=== PATIENT | female | born 1995 | race African-American/Black ===

== ENCOUNTER 2023-03-03 07:06 | Inpatient (IN) | payer SELFPAY ==
[~2023-03-03] VITALS: Ht 167.6 cm; Wt 77.1 kg
[2023-03-03 08:10] LABS: CLARITY URINE CLEAR (CLEAR); COLOR URINE YELLOW (YELLOW); GLUCOSE URINE NEGATIVE (NEGATIVE); KETONES URINE TRACE (NEGATIVE); LEUKOCYTE ESTERASE URINE NEGATIVE (NEGATIVE); NITRITE URINE NEGATIVE (NEGATIVE); OCCULT BLOOD URINE 3+ (NEGATIVE); PH URINE 5.5 (4.5-8.0); PROTEIN URINE 1+ (NEGATIVE); SPECIFIC GRAVITY URINE 1.032 (1.005-1.030)
[2023-03-03 08:46] LABS: BASOPHILS % 0.3 % (0.0-2.0); DIFFERENTIAL COMMENT 0; EOSINOPHILS % 0.3 % (0.0-5.0); LYMPHOCYTES % 12.6 % (20.0-50.0); MEAN CORPUSCULAR HEMOGLOBIN 28.1 pg (28.0-32.0); MEAN CORPUSCULAR HGB CONC 33.1 g/dL (31.0-37.0); MEAN CORPUSCULAR VOLUME 84.8 fL (81.0-99.0); MEAN PLATELET VOLUME 8.2 fl (7.4-10.4); MONOCYTES % 3.1 % (2.0-8.0); NEUTROPHILS % 83.7 % (40.0-76.0); PLATELET 218 x1000/uL (130-400); RED BLOOD CELL COUNT 2.04 mill/uL (4.2-5.4); RED CELL DISTRIBUTION WIDTH 15.1 % (11.6-14.6); WHITE BLOOD COUNT 7.3 x1000/uL (4.5-11.0)
[2023-03-03 08:48] LABS: CHLORIDE 110 mEq/L (98-107); INDEX HEMOLYSI 1 (1-3); INDEX ICTERIC 1 (1-4); INDEX LIPEMIC 1 (1-3); POTASSIUM 3.9 mEq/L (3.5-5.1); SODIUM 138 mEq/L (136-145)
[2023-03-03 08:49] LABS: HEMATOCRIT. 17.3 % (36.0-48.0); HEMOGLOBIN. 5.7 g/dL (12.0-16.0)
[2023-03-03 08:54] LABS: MUCUS URINE 2+ /lpf (< = 2+)
[2023-03-03 08:55] LABS: BACTERIA URINE TRACE; RBC URINE TNTC /hpf (0-2); SQUAMOUS EPITHELIAL CELL URINE RARE /lpf (RARE/1+)
[2023-03-03 08:56] LABS: WBC URINE 0-2 /hpf (0-2)
[2023-03-03 09:04] LABS: ALANINE AMINOTRANSFERASE 18 IU/L (13-61); ALBUMIN 3.6 g/dL (3.4-5.0); ASPARTATE AMINOTRANSFERASE 9 IU/L (15-37); B-HCG QUANTITATIVE 66 mIU/mL (<3); BILIRUBIN TOTAL 0.2 mg/dL (0.1-1.0); CALCIUM 8.6 mg/dL (8.5-10.1); CARBON DIOXIDE 25 mEq/L (21-32); CREATININE 0.8 mg/dL (0.6-1.3); GLUCOSE 105 mg/dL (70-105); PROTEIN TOTAL 6.8 g/dL (6.0-8.3); UREA NITROGEN BLOOD 13 mg/dL (7-21)
[2023-03-03 09:35] LABS: PARTIAL THROMBOPLASTIN TIME 22.8 sec (23.4-31.0); PROTHROMBIN TIME 10.9 sec (9.6-11.0)
[2023-03-03 16:43] LABS: HEMATOCRIT 22.8 % (36.0-48.0); HEMOGLOBIN 7.4 g/dL (12.0-16.0); MEAN CORPUSCULAR HEMOGLOBIN 27.4 pg (28.0-32.0); MEAN CORPUSCULAR HGB CONC 32.5 g/dL (31.0-37.0); MEAN CORPUSCULAR VOLUME 84.3 fL (81.0-99.0); PLATELET 187 x1000/uL (130-400); RED CELL DISTRIBUTION WIDTH 15.2 % (11.6-14.6); WHITE BLOOD COUNT 8.2 x1000/uL (4.5-11.0)
[2023-03-03] MEDS ORDERED: PROPOFOL 200MG/20ML VIAL IV ONE ×2 (20:12→20:25)
[2023-03-03] MEDS ORDERED: CEFAZOLIN SODIUM 1000MG/VIAL ONE (20:38)
[2023-03-03] MEDS ORDERED: DEXAMETHASONE 4MG/ML 1ML VIAL ONE (20:38)
[2023-03-03] MEDS ORDERED: ONDANSETRON HCL 4MG/2ML INJ ONE (20:38)
[2023-03-03] MEDS ORDERED: SUCCINYLCHOLINE CHLORIDE 200MG/10ML IV ONE (20:38)
[2023-03-03] MEDS ORDERED: LIDOCAINE HCL 1% 20ML VIAL (Pyxis) INJ ONE (20:39)
[2023-03-03] MEDS ORDERED: MIDAZOLAM HCL 2 MG/2 ML VIAL ONE (20:39)
[2023-03-03] MEDS ORDERED: KETOROLAC 30MG/ML VIAL ONE (20:40)
[2023-03-03] MEDS ORDERED: FENTANYL CITRATE/PF 50MCG/ML 2ML VIAL ONE ×3 (20:40→23:43)
[2023-03-03] MEDS ORDERED: FENTANYL CITRATE/PF 50MCG/ML 2ML VIAL IV PRN (21:00)
[2023-03-03] MEDS ORDERED: ONDANSETRON HCL 4MG/2ML INJ IV PRN (21:00)
[2023-03-03] MEDS ORDERED: HYDROMORPHONE HCL/PF 2MG/ML CPJ IV PRN (21:00)
[2023-03-03] MEDS ORDERED: MEPERIDINE HCL/PF 25MG/ML CPJ IV PRN (21:00)
[2023-03-03] MEDS ORDERED: OXYTOCIN 10 UNITS/ML 1ML ONE (21:19)
[2023-03-03] MEDS ORDERED: TRANEXAMIC ACID 1,000 MG/10 ML IV ONE (21:30)
[2023-03-03] MEDS ORDERED: WATER IV NR (22:00)
[2023-03-03] MEDS ORDERED: TRANEXAMIC ACID IV NR (22:00)
[2023-03-03] MEDS ORDERED: DEXT 5% IV NR (22:00)
[2023-03-03] MEDS ORDERED: MISOPROSTOL 200MCG TABLET PO SCH (22:00)
[2023-03-03 22:39] LABS: BASOPHILS % 0.5 % (0.0-2.0); DIFFERENTIAL COMMENT 0; EOSINOPHILS % 0.4 % (0.0-5.0); LYMPHOCYTES % 11.3 % (20.0-50.0); MEAN CORPUSCULAR HEMOGLOBIN 27.4 pg (28.0-32.0); MEAN CORPUSCULAR HGB CONC 32.3 g/dL (31.0-37.0); MEAN CORPUSCULAR VOLUME 84.6 fL (81.0-99.0); MEAN PLATELET VOLUME 8.3 fl (7.4-10.4); MONOCYTES % 4.4 % (2.0-8.0); NEUTROPHILS % 83.4 % (40.0-76.0); PLATELET 136 x1000/uL (130-400); RED BLOOD CELL COUNT 2.15 mill/uL (4.2-5.4); RED CELL DISTRIBUTION WIDTH 14.8 % (11.6-14.6)
[2023-03-03 22:46] LABS: HEMOGLOBIN. 5.9 g/dL (12.0-16.0)
[2023-03-03 22:47] LABS: HEMATOCRIT. 18.2 % (36.0-48.0)
[2023-03-03] MEDS ORDERED: IOHEXOL-300 100 ML BOTTLE ONE (23:17)
[2023-03-03] MEDS ORDERED: LIDOCAINE HCL 1% 10 MG/ML 10ML VIAL ONE (23:17)
[2023-03-03 23:29] LABS: D-DIMER 0.72 mg/L FEU (<0.50); INR 1.1; PROTHROMBIN TIME 11.5 sec (9.6-11.0)
[2023-03-04] VITALS (71 sets, daily range): BP systolic 101–136; BP diastolic 49–94; PULSE 66–130; RESP 12–69; TEMP 98–98.8
[2023-03-04] MEDS ORDERED: IOHEXOL-300 100 ML BOTTLE ONE (00:39)
[2023-03-04] MEDS ORDERED: FENTANYL CITRATE/PF 50MCG/ML 2ML VIAL ONE (01:29)
[2023-03-04] MEDS ORDERED: IOHEXOL-300 50 ML BOTTLE IV ONE (01:35)
[2023-03-04] MEDS ORDERED: TRANEXAMIC ACID 1,000 MG/10 ML IV SCH (02:15)
[2023-03-04] MEDS ORDERED: ONDANSETRON HCL 4MG/2ML INJ IV PRN (02:45)
[2023-03-04] MEDS ORDERED: MEPERIDINE HCL/PF 25MG/ML CPJ IV PRN (02:45)
[2023-03-04] MEDS ORDERED: HYDROMORPHONE HCL/PF 2MG/ML CPJ IV PRN (02:45)
[2023-03-04] MEDS ORDERED: FENTANYL CITRATE/PF 50MCG/ML 2ML VIAL IV PRN (02:45)
[2023-03-04 03:28] LABS: HEMATOCRIT. 28.2 % (36.0-48.0); HEMOGLOBIN. 9.6 g/dL (12.0-16.0); MEAN CORPUSCULAR HGB CONC 33.9 g/dL (31.0-37.0); MEAN CORPUSCULAR VOLUME 85.5 fL (81.0-99.0); MEAN PLATELET VOLUME 8.3 fl (7.4-10.4); PLATELET 162 x1000/uL (130-400); RED BLOOD CELL COUNT 3.29 mill/uL (4.2-5.4); WHITE BLOOD COUNT 11.1 x1000/uL (4.5-11.0)
[2023-03-04 03:30] LABS: D-DIMER 0.51 mg/L FEU (<0.50); INR 1.1; PARTIAL THROMBOPLASTIN TIME 26.2 sec (23.4-31.0); PROTHROMBIN TIME 11.3 sec (9.6-11.0)
[2023-03-04 03:38] LABS: CALCIUM 7.4 mg/dL (8.5-10.1); CHLORIDE 113 mEq/L (98-107); INDEX HEMOLYSI 1 (1-3); INDEX ICTERIC 1 (1-4); INDEX LIPEMIC 1 (1-3); POTASSIUM 4.4 mEq/L (3.5-5.1); SODIUM 138 mEq/L (136-145)
[2023-03-04 03:42] LABS: CARBON DIOXIDE 24 mEq/L (21-32); CREATININE 0.8 mg/dL (0.6-1.3); GLUCOSE 159 mg/dL (70-105); UREA NITROGEN BLOOD 6 mg/dL (7-21)
[2023-03-04 03:47] LABS: DIFFERENTIAL COMMENT 1
[2023-03-04 04:44] LABS: PLATELET ESTIMATE NORMAL
[2023-03-04] MEDS: WATER IV SCH ×3 (07:44→20:47)
[2023-03-04] MEDS: TRANEXAMIC ACID IV SCH ×3 (07:44→20:47)
[2023-03-04] MEDS: DEXT 5% IV SCH ×3 (07:44→20:47)
[2023-03-04 10:34] LABS: HEMATOCRIT 27.2 % (36.0-48.0); HEMOGLOBIN 8.9 g/dL (12.0-16.0)
[2023-03-04] MEDS: FERROUS SULFATE 325MG TABLET PO SCH (18:10)
[2023-03-04 22:18] LABS: BASOPHILS % 0.3 % (0.0-2.0); EOSINOPHILS % 0.2 % (0.0-5.0); HEMATOCRIT. 26.2 % (36.0-48.0); HEMOGLOBIN. 8.5 g/dL (12.0-16.0); MEAN CORPUSCULAR HEMOGLOBIN 28.4 pg (28.0-32.0); MEAN CORPUSCULAR HGB CONC 32.5 g/dL (31.0-37.0); MEAN CORPUSCULAR VOLUME 87.2 fL (81.0-99.0); MEAN PLATELET VOLUME 8.8 fl (7.4-10.4); MONOCYTES % 7.3 % (2.0-8.0); NEUTROPHILS % 70.2 % (40.0-76.0); PLATELET 130 x1000/uL (130-400); RED CELL DISTRIBUTION WIDTH 15.1 % (11.6-14.6)
[2023-03-05] VITALS: BP 106/60; PULSE 81; RESP 16; TEMP 99.5
[2023-03-05] MEDS: WATER IV SCH ×2 (03:18→09:37)
[2023-03-05] MEDS: TRANEXAMIC ACID IV SCH ×2 (03:18→09:37)
[2023-03-05] MEDS: DEXT 5% IV SCH ×2 (03:18→09:37)
[2023-03-05 04:00] VITALS: BP 109/63; PULSE 16; RESP 16; TEMP 99.5
[2023-03-05 08:00] VITALS: BP 115/71; PULSE 87; RESP 18; TEMP 98.9
[2023-03-05] MEDS ORDERED: MULTIVITAMINS,THER W-MINERALS TABLET PO SCH (09:00)
[2023-03-05] MEDS: FERROUS SULFATE 325MG TABLET PO SCH ×3 (09:37→16:48)
[2023-03-05 12:00] VITALS: BP 122/73; PULSE 103; RESP 20; TEMP 97.9
[2023-03-05 16:00] VITALS: BP 132/70; PULSE 109; RESP 20; TEMP 98.6
[2023-03-05 16:07] VITALS: BP 115/71; PULSE 87; TEMP 98.9; O2SAT 99
== END 2023-03-05 17:35 | disposition home or self-care (01) | DRG 543 ==
LOC: ER 08:16 → MICUSO 14:40 → CANBEDREQ 15:34 → MICUSO 03-04 03:50 → 6WST 03-04 19:01
PROVIDERS: ADMIT Obstetrics & Gynecology; ATTEND Obstetrics & Gynecology
PROC: 30233N1 Transfusion of Nonautologous Red Blood Cells into Peripheral Vein, Percutaneous Approach (ICD-10-PCS; principal; 2023-03-03)
PROC: 10D17ZZ Extraction of Products of Conception, Retained, Via Natural or Artificial Opening (ICD-10-PCS; 2023-03-04)
PROC: 30233L1 Transfusion of Nonautologous Fresh Plasma into Peripheral Vein, Percutaneous Approach (ICD-10-PCS; 2023-03-04)
PROC: B41JYZZ Fluoroscopy of Other Lower Arteries using Other Contrast (ICD-10-PCS; 2023-03-05)
DX: O03.4 Incomplete spontaneous abortion without complication (principal); O99.011 Anemia complicating pregnancy, first trimester; Z20.822 Contact with and (suspected) exposure to COVID-19; Z3A.01 Less than 8 weeks gestation of pregnancy
CPT/HCPCS: 36415; 75736; 75774; 76801; 80048; 80053; 81003; 84702; 85014; 85018; 85025; 85027; 85379; 85384; 86850; 86900; 86920; 86927; 87426; 88305; 93005; 93970; 99291; A6261; C1725; C1757; C1760; C1766; C1769; C9803; J0330; J0690; J1100; J1644; J1885; J2250; J2405; J2704; J3010; J3490; J7060; P9016; P9017; Q9967; A4315

== ENCOUNTER 2024-02-11 13:31 | Emergency (ER) | payer MEDICAID, OTHER ==
[~2024-02-11] VITALS: Ht 170.2 cm; Wt 81.0 kg
[2024-02-11 13:37] VITALS: O2SAT 98
[2024-02-11 14:02] LABS: BASOPHILS % 0.3 % (0.0-2.0); HEMATOCRIT. 40.6 % (36.0-48.0); HEMOGLOBIN. 13.3 g/dL (12.0-16.0); LYMPHOCYTES % 17.1 % (20.0-50.0); MEAN CORPUSCULAR HEMOGLOBIN 30.9 pg (28.0-32.0); MEAN CORPUSCULAR HGB CONC 32.8 g/dL (31.0-37.0); MEAN CORPUSCULAR VOLUME 94.2 fL (81.0-99.0); MEAN PLATELET VOLUME 9.4 fl (7.4-10.4); MONOCYTES % 3.9 % (2.0-8.0); NEUTROPHILS % 78.7 % (40.0-76.0); PLATELET 163 x1000/uL (130-400); RED BLOOD CELL COUNT 4.31 mill/uL (4.2-5.4); RED CELL DISTRIBUTION WIDTH 13.4 % (11.6-14.6); WHITE BLOOD COUNT 5.7 x1000/uL (4.5-11.0)
[2024-02-11 14:15] LABS: CHLORIDE 104 mEq/L (98-107); POTASSIUM 3.7 mEq/L (3.5-5.1); SODIUM 137 mEq/L (136-145)
[2024-02-11 14:16] LABS: CARBON DIOXIDE 27 mEq/L (21-32)
[2024-02-11 14:17] LABS: CALCIUM 9.9 mg/dL (8.7-10.4)
[2024-02-11 14:21] LABS: CREATININE 0.8 mg/dL (0.6-1.0)
[2024-02-11 14:22] LABS: GLUCOSE 125 mg/dL (70-105); UREA NITROGEN BLOOD 8 mg/dL (9-23)
[2024-02-11 14:27] LABS: CLARITY URINE TURBID (CLEAR); COLOR URINE DARK YELLOW (YELLOW); GLUCOSE URINE NEGATIVE (NEGATIVE); KETONES URINE 4+ (NEGATIVE); LEUKOCYTE ESTERASE URINE TRACE (NEGATIVE); NITRITE URINE NEGATIVE (NEGATIVE); OCCULT BLOOD URINE NEGATIVE (NEGATIVE); PROTEIN URINE 1+ (NEGATIVE); SPECIFIC GRAVITY URINE 1.039 (1.005-1.030)
[2024-02-11 14:42] LABS: BACTERIA URINE 2+; SQUAMOUS EPITHELIAL CELL URINE 3+ /lpf (RARE/1+); YEAST URINE NONE SEEN
[2024-02-11] MEDS: ONDANSETRON 4MG ODT PO ONE (17:04)
[2024-02-11] MEDS: HYDROCODONE/ACETAMINOPHEN 10/325MG TABLET PO ONE (17:04)
[2024-02-11] MEDS ORDERED: SODIUM CHLORIDE 0.9% 500 ML IV ONE (19:15)
[2024-02-11] MEDS ORDERED: MANNITOL 20% (20GM/100ML) BAG 500ML PREMIX IV ONE (19:45)
[2024-02-11] MEDS: DEXAMETHASONE 10 MG/ML VIAL IV ONE (20:10)
[2024-02-11] MEDS: CEFTRIAXONE 1GM/50ML 50 ML IV NR (20:25)
[2024-02-11] MEDS: MORPHINE SULFATE 2 MG/ML INJ (NOT FOR IM USE) IV ONE (20:50)
[2024-02-11] MEDS: MANNITOL 20% 250 ML IV NR (21:00)
[2024-02-12] MEDS: MORPHINE SULFATE 4 MG/ML INJ (FOR IV/IM USE) IV ONE ×2 (06:25→15:36)
[2024-02-12] MEDS: GADOTERATE MEGLUMINE 5 MMOL/10 ML VIAL IV ONE (12:22)
[2024-02-12] MEDS: ONDANSETRON HCL 4MG/2ML INJ IV ONE (15:37)
[2024-02-13 01:19] VITALS: BP 126/71; PULSE 59; RESP 18; TEMP 98.3
== END 2024-02-13 01:20 | disposition short-term general hospital (02) ==
LOC: ER 13:31
DX: G91.9 Hydrocephalus, unspecified (principal); R51.9 Headache, unspecified; R11.2 Nausea with vomiting, unspecified
CPT/HCPCS: 80048; 81003; 81025; 85025; 36415; 70450; 96367; 96365; 96375 ×2; 99291; 96376; Q0162; J0696; J1100; J2270 ×2; Z7610; A9577; J2405

== ENCOUNTER 2025-02-06 11:37 | Emergency (ER) | payer MEDICAID ==
[~2025-02-06] VITALS: Ht 170.2 cm; Wt 88.0 kg
[2025-02-06 11:51] VITALS: O2SAT 99
[2025-02-06] MEDS: KETOROLAC 30MG/ML VIAL IM ONE (14:06)
[2025-02-06] MEDS: LIDOCAINE 5% PATCH TOP SCH (14:06)
[2025-02-06 14:36] LABS: CLARITY URINE CLEAR (CLEAR); COLOR URINE YELLOW (YELLOW); GLUCOSE URINE NEGATIVE (NEGATIVE); KETONES URINE TRACE (NEGATIVE); LEUKOCYTE ESTERASE URINE NEGATIVE (NEGATIVE); NITRITE URINE NEGATIVE (NEGATIVE); OCCULT BLOOD URINE NEGATIVE (NEGATIVE); PH URINE 5.5 (4.5-8.0); PROTEIN URINE NEGATIVE (NEGATIVE); SPECIFIC GRAVITY URINE 1.025 (1.005-1.030); UROBILINOGEN URINE 0.2 E.U./dL (0.2-1.0)
[2025-02-06] MEDS ORDERED: LIDO-53 TP (14:40)
[2025-02-06 14:48] VITALS: BP 132/80; PULSE 91; RESP 18; TEMP 36.7; O2SAT 99
== END 2025-02-06 14:50 | disposition home or self-care (01) ==
LOC: ER 11:37
DX: M54.50 Low back pain, unspecified (principal); Z98.890 Other specified postprocedural states
CPT/HCPCS: 99283; 81003; 81025; 96372; J1885

== ENCOUNTER 2025-05-07 07:54 | Emergency (ER) | payer MEDICAID ==
[~2025-05-07] VITALS: Ht 167.6 cm; Wt 72.0 kg
[~2025-05-07 07:54] MED LIST: LIDO-53 TP
[2025-05-07 08:11] VITALS: O2SAT 99
[2025-05-07 08:46] LABS: CLARITY URINE CLE (CLEAR); COLOR URINE YELLOW (YELLOW); GLUCOSE URINE NEGATIVE (NEGATIVE); KETONES URINE NEGATIVE (NEGATIVE); LEUKOCYTE ESTERASE URINE NEGATIVE (NEGATIVE); NITRITE URINE NEGATIVE (NEGATIVE); OCCULT BLOOD URINE NEGATIVE (NEGATIVE); PH URINE 5.5 (4.5-8.0); PROTEIN URINE NEGATIVE (NEGATIVE); SPECIFIC GRAVITY URINE 1.023 (1.005-1.030); UROBILINOGEN URINE 0.2 E.U./dL (0.2-1.0)
[2025-05-07] MEDS: ACETAMINOPHEN 325MG TABLET PO ONE (09:00)
[2025-05-07] MEDS: LIDOCAINE 5% PATCH TOP ONE (09:00)
[2025-05-07] MEDS: KETOROLAC 15MG/ML VIAL IM ONE (09:00)
[2025-05-07 09:07] VITALS: BP 130/77; PULSE 96; RESP 16; TEMP 36.7; O2SAT 99
[2025-05-07] MEDS ORDERED: LIDO700A30 TP (09:12)
== END 2025-05-07 09:35 | disposition home or self-care (01) ==
LOC: ER 07:54
DX: M54.9 Dorsalgia, unspecified (principal); Z76.0 Encounter for issue of repeat prescription
CPT/HCPCS: 99283; 81003; 81025; 96372; J1885